=== PATIENT | male | born 1950 | race Caucasian/White ===

== ENCOUNTER 2016-12-17 20:02 | Emergency (ER) | payer MEDICARE, OTHER ==
--- NOTE | 2016-12-17 20:56 | ER Document Report ---
ED Medical Screen (RME) - General Chief Complaint: Foreign Body in Eye Stated Complaint: RIGHT EYE INJURY Notes: This 66-year-old male patient comes emergency room for a right eye injury that occurred about 5 PM today. He was using a cough we'll cutting on steel when he thinks piece of the wheel broke off and flew up under his protective eyewear striking his right eye. He reports his son did get a piece of debris, possibly the part of the wheel out of his eye. It still feels like there is something up under the eyelid when he blinks. The wheel was probably a fiber concrete pressed disc. Inspecting the eye there is no gross abnormality but there is photophobia. Tetracaine drops were placed in the eye, giving him immediate relief of his symptoms. TRAVEL OUTSIDE OF THE [place] IN LAST 30 DAYS: No - Related Data Allergies/Adverse Reactions: No Known Allergies Allergy (Verified 12/17/16 20:37) Past Medical History - Past Medical History Cardiac Medical History: Reports: Hx Hypertension Denies: Hx Coronary Artery Disease, Hx Heart Attack Pulmonary Medical History: Denies: Hx Asthma, Hx Bronchitis, Hx COPD, Hx Pneumonia Neurological Medical History: Denies: Hx Cerebrovascular Accident, Hx Seizures Renal/ Medical History: Denies: Hx Peritoneal Dialysis Musculoskeltal Medical History: Reports Hx Arthritis Past Surgical History: Denies: Hx Pacemaker - Immunizations Hx Diphtheria, Pertussis, Tetanus Vaccination: No Physical Exam - Vital signs Vitals: Temp Pulse Resp BP Pulse Ox 97.9 F 88 16 158/93 H 97 12/17/16 20:39 12/17/16 20:39 12/17/16 20:39 12/17/16 20:39 12/17/16 20:39 Course - Vital Signs Vital signs: Temp Pulse Resp BP Pulse Ox 97.9 F 88 16 158/93 H 97 12/17/16 20:39 12/17/16 20:39 12/17/16 20:39 12/17/16 20:39 12/17/16 20:39
[2016-12-17] MEDS ORDERED: TETRACAINE HCL 0.5% OPH SOLN 2 ML OD ONE (23:04)
--- NOTE | 2016-12-17 23:09 | ER Document Report ---
ED General - General Chief Complaint: Foreign Body in Eye Stated Complaint: RIGHT EYE INJURY Mode of Arrival: Ambulatory Information source: Patient TRAVEL OUTSIDE OF THE [place] IN LAST 30 DAYS: No - HPI Notes: This 66-year-old male patient comes emergency room for a right eye injury that occurred about 5 PM today. He was using a grinding wheel cutting on steel when he thinks piece of the wheel broke off and flew up under his protective eyewear striking his right eye. There was no direct blunt impact to the eye. He reports his son did get a piece of debris, possibly the part of the wheel out of his eye. It still feels like there is something up under the eyelid when he blinks. The wheel was probably a fiber concrete pressed disc. - Related Data Allergies/Adverse Reactions: No Known Allergies Allergy (Verified 12/17/16 20:37) Past Medical History - Social History Smoking Status: Never Smoker Cigarette use (# per day): No Frequency of alcohol use: None Drug Abuse: None Lives with: Family Family History: Reviewed & Not Pertinent Patient has suicidal ideation: No Patient has homicidal ideation: No - Past Medical History Cardiac Medical History: Reports: Hx Hypertension Denies: Hx Coronary Artery Disease, Hx Heart Attack Pulmonary Medical History: Denies: Hx Asthma, Hx Bronchitis, Hx COPD, Hx Pneumonia Neurological Medical History: Denies: Hx Cerebrovascular Accident, Hx Seizures Renal/ Medical History: Denies: Hx Peritoneal Dialysis Musculoskeltal Medical History: Reports Hx Arthritis Past Surgical History: Denies: Hx Pacemaker - Immunizations Hx Diphtheria, Pertussis, Tetanus Vaccination: No Review of Systems - Review of Systems Constitutional: denies: Fever EENT: Eye pain, Tearing. denies: Eye discharge, Double vision, Nose pain Cardiovascular: No symptoms reported Respiratory: No symptoms reported Gastrointestinal: No symptoms reported Musculoskeletal: No symptoms reported Skin: No symptoms reported. denies: Lesions, Rash Physical Exam - Vital signs Vitals: Temp Pulse Resp BP Pulse Ox 97.9 F 88 16 158/93 H 97 12/17/16 20:39 12/17/16 20:39 12/17/16 20:39 12/17/16 20:39 12/17/16 20:39 - General General appearance: Appears well - HEENT Head: Atraumatic Eyes: No: Pale conjunctiva, Scleral icterus Conjunctiva: Injected - butterfly rash in all Cornea: Corneal abrasion, Embedded foreign body - Right eye approximately 2:00 there is no embedded foreign body that appears to be metallic. There is a surrounding rust ring noted. Anterior chamber otherwise clear. Visual acuity 20 /50 bilaterally each eye., Flourescein stain uptake Eyelashes: Normal Pupils: PERRL Corrective lenses worn: No Lids everted for exam: right: Normal Anterior chamber: Normal Fundascopic: Normal Course - Re-evaluation Re-evalutation: 12/18/16 01:04 Following discussion of risks alternatives benefits, the patient agreed to removal of the foreign body in the right eye. The patient was given tetracaine drop then using direct visualization with a slit lamp and a 21-gauge needle I was able to remove the metallic foreign body, leaving a small rust ring. I was able to remove some of the rust ring with the needle. The patient tolerated this well. The anterior chamber was not breached. Follow-up exam following showed no residual foreign body anywhere else and both lids were everted again with no foreign body. Incidental note made of a small pterygium at 3:00, appears chronic. - Vital Signs Vital signs: Temp Pulse Resp BP Pulse Ox 97.9 F 88 16 158/93 H 97 12/17/16 20:39 12/17/16 20:39 12/17/16 20:39 12/17/16 20:39 12/17/16 20:39 Discharge - Discharge Clinical Impression: Foreign body Corneal abrasion Qualifiers: Encounter type: initial encounter Laterality: right Qualified Code(s): S05.01XA - Injury of conjunctiva and corneal abrasion without foreign body, right eye, initial encounter Pterygium of eye Qualifiers: Laterality: right Qualified Code(s): H11.001 - Unspecified pterygium of right eye Condition: Stable Disposition: HOME, SELF-CARE Additional Instructions: Corneal Foreign Body with Rust You had a particle on the cornea of your eye. It's been removed, but your eye may be irritated until complete healing occurs. If a metal foreign body was imbedded in the eye, rust may develop in the cornea. If all the rust can't be removed at first, it can be removed at your follow-up visit. Following removal of a corneal foreign body, the usual treatment is to place antibiotics in the eye. If the eye is severely irritated, the pupil may be dilated to ease the pain. In addition, pain medication may be necessary. A follow-up visit is usually scheduled to assure healing. Do not drive or operate machinery until you have the full use of both your eyes. Healing of the area where the particle was embedded takes one to three days. If eye pain becomes severe, or if there is purulent drainage, eye swelling , or decreasing vision, call the doctor or return at once for re-evaluation. Follow-up with your regular welding technician or movie stunt performer in 2 days for repeat evaluation. Avoid bright lights. Cilox[place] drops 1 drop in the right eye 3 times a day for next 5 days. Take ibuprofen for pain, add in Percocet for severe pain. Prescriptions: Oxycodone HCl/Acetaminophen [Percocet 5-325 mg Tablet] 1 - 2 tab PO Q4H PRN #25 tablet PRN Reason:
[2016-12-18] MEDS ORDERED: HYDROCODONE/ACETAMINOPHEN 5-325 MG 6 TAB/DSPK PO PRN (00:58)
[2016-12-18] MEDS ORDERED: CIPROFLOXACIN HCL 0.3% OPH SOLN 2.5 ML OD SCH (01:00)
[2016-12-18 01:27] VITALS: BP 164/88
== END 2016-12-18 01:29 | disposition home or self-care (01) ==
LOC: ER 20:02
PROC: 08C8XZZ Extirpation of Matter from Right Cornea, External Approach (ICD-10-PCS; principal; 2016-12-17)
DX: T15.01XA Foreign body in cornea, right eye, initial encounter (principal); H11.001 Unspecified pterygium of right eye; X58.XXXA Exposure to other specified factors, initial encounter; I10 Essential (primary) hypertension
CPT/HCPCS: 99283; 65222; J3490; A9270